=== PATIENT | female | born 1975 | race Caucasian/White ===

== ENCOUNTER 2017-03-03 15:22 | Inpatient (IN) | payer MEDICARE ==
--- NOTE | ~2017-03-03 | A ---
[facility] Nutrition Therapy DATE: 03/08/17 Patient: NAEEM WINKLER Physician: BEE Address: [address] [place] [address] Room/Bed: [address] [place] [address], Zip: [place] [address] Admit Date: 03/03/17 Date of : 75 Height: 5 5 Weight: 191 86.8 NUTRITIONAL ASSESSMENT: REASON: CONSULT RE: DM DIET EDUCATION DX: SEPSIS, UTI, CELLULITIS PMH: DM Anthropometrics: 5'5", 185#, BMI 30 Assessment: CHART REVIEWED, EVENTS NOTED. RD CONSULTED RE: DIABETES DIET EDUCATION. PER RN, THE PT HAS BEEN NON-COMPLIANT WITH HER DIABETIC DIET IN THE PAST. RD AND CONVEYOR WEIGHER OPERATOR VISITED PT AT BEDSIDE AND PROVIDED WRITTEN AND VERBAL DIABETIC DIET EDUCATION. RD ENCOURAGED PT TO EAT 3 MEALS A DAY AND TO INCLUDE A PROTEIN SOURCE WITH EACH MEAL. RD PROVIDED EXAMPLES OF HEALTHY FOODS TO INCLUDE IN HER DIET, AND GAVE AN EXPLANATION OF CARB-COUNTING. PT WAS AGREEABLE AND HAD NO QUESTIONS AT THIS TIME. RD WILL REMAIN AVAILABLE. Intervention: 1. DIABETES DIET EDUCATION Recommendations: 1. ENCOURAGE COMPLIANCE OF DIABETIC DIET. 2. RE-CONSULT RD IF FURTHER QUESTIONS. Respectfully, RATNA VALENZUELA, BANKING MANAGER LIAN DRIVER MS, RD, LD Food and Nutritional Services [facility] cc: client file
--- NOTE | ~2017-03-03 | HP ---
Unit #: [id number] #: [id number] Patient: NAEEM WINKLER [id number] [address] [place], [place] [address] [id number] I MR#: [id number] NAME: NAEEM WINKLER ROOM: 338 Age: 41 Sex: F Admission Date: 03/03/2017 : 1975 Attending Physician: Joe Be M.D. Primary Care Physician: No Primary Care Physician HISTORY AND PHYSICAL CHIEF COMPLAINT Elevated blood sugars. HISTORY OF PRESENT ILLNESS The patient is a 41-year-old female with a history of diabetes on metformin, brought to the emergency room with the sugars above 400 in the range of 470s for the last one week. The patient also complains of swelling of the right hand that started a few days ago. The patient denies any trauma to the hand and complains of the swelling and redness at the right wrist. The patient also complains of the on and off nausea, vomiting, and diarrhea associated with high blood sugars. The patient is diagnosed with uncontrolled diabetes, cellulitis and UTI. The patient's UA shows 1+ leukocyte esterase, 2+ blood and 25-50 red blood cell, and 1+ bacteria. PAST MEDICAL HISTORY Significant for hypertension, hypothyroidism, diabetes. PAST SURGICAL HISTORY History of a right foot surgery, EGD, tonsillectomy. MEDICATIONS She is on metformin, gabapentin, atenolol, and Synthroid. ALLERGIES Allergic to erythromycin based. SOCIAL HISTORY Smokes 1/2 pack per day. Denies any alcohol or any illicit drug abuse. FAMILY HISTORY Reviewed and none. REVIEW OF SYSTEMS Fourteen point review of systems was performed and only pertinent positives as described above. The remaining are negative. PHYSICAL EXAMINATION GENERAL: The patient is lying on the bed, not in acute distress. VITALS: Temperature 98.3, pulse 72, respiratory rate 16, blood pressure 118/72, satting 96% at room air. HEENT: Head atraumatic, normocephalic. Pupils equal, round and reactive to light and accommodation. Extraocular movements are intact. NECK: Supple. Unit #: [id number] #: [id number] Patient: NAEEM WINKLER LUNGS: Decreased air entry at the bases. HEART: Regular rate and rhythm. ABDOMEN: Soft. Positive bowel sounds. Generalized abdominal discomfort. EXTREMITIES: Right wrists swollen and tenderness and palpable pulses. No open wounds. No cyanosis and no clubbing. NEUROLOGIC: Alert, awake and oriented. No gross focal motor deficit. DIAGNOSTIC STUDIES LABORATORY DATA: UA shows bacteria 1+ with a glucose of 25-50, glucose more than 1,000, leukocytes 1+. Blood sugar 478 and ABG shows pH of 7.5, pCO2 38, pO2 73.6, bicarb 31.8, oxygen saturation 97 and drug screen is negative. Beta HCG is negative. WBC 22.5, hemoglobin 15, hematocrit 45.1, platelets 387. Sodium 137, potassium 3.9, chloride 95, bicarb 30, glucose 398, BUN 44, creatinine 1.3, calcium 9.5, alk phos 96, beta hydroxybutyrate is 0.15. Lactic acid is 1.4. IMAGING STUDIES: Chest x-ray shows no active process. CT of the abdomen and pelvis - no acute findings in the abdominal pelvis and 9 mm indeterminate patchy nodular density in the posterior right lung base in the inferior lower lobe. This could be infectious or inflammatory but is nonspecific and followup CT chest in 3 months should be considered. Single tiny nonobstructing stone in the mid right and left kidneys. Normal appendix. Partially visualized incidental Bartholin duct cyst along the left inferior perineum measuring 4.2 cm in maximal dimension. ASSESSMENT AND PLAN 1. Uncontrolled diabetes mellitus. 2. Cellulitis. 3. UTI. 4. Sepsis. PLAN Plan to admit the patient to inpatient and patient will be started on the IV fluids, normal saline at 125 cc per hour, continuing with IV antibiotics with Unasyn to cover the UTI and the cellulitis and followup with the sepsis protocol and continue with the low dose sliding scale and Accu-Cheks q. a.c. and h.s. and check the hemoglobin A1c and further recommendations will follow. Dictated by Maria Luisa De La Cruz TD: 03/04/2017 06:22 JOB #: [id number] Unit #: [id number] #: [id number] Patient: NAEEM WINKLER HISTORY AND PHYSICAL Page 1 of 1 X JOE BE MD X HISTORY AND PHYSICAL
--- NOTE | ~2017-03-03 | CT57 ---
[facility] A Service of [facility] RADIOLOGY TEXT RESULTS PATIENT: NAEEM WINKLER LOCATION: [facility] : 75 UNIT #: [id number] AGE: [address]: Sil Guillaume MD SEX: F ORDER DR: [id number] [id number] [facility]. [place], [place] [address] [id number] I MR#: [id number] Acc #: [id number] NAME: NAEEM IWNKLER : 1975 SEX: F STUDY DATE/TIME: 03/04/2017 13:17 UNIT: [address] ROOM: [facility] STUDY DESCRIPTION: CT Chest Wo Cont Attending Physician: Sil Guillaume M.D. Ordering Physician: Sil Guillaume M.D. Primary Care Physician: No Primary Care Physician MEDICAL IMAGING REPORT This report is preliminary unless electronic signature is present EXAM Chest CT no contrast 03/04/2017 INDICATIONS Coughing for a while. No history of malignancy. Hypertension, diabetes, tobacco abuse. TECHNIQUE Noncontrast CT of the chest was performed. This CT exam was performed with one or more of the following radiation dose reduction techniques: automatic exposure control, adjustment of mA and/or kV according to patient size, and iterative reconstruction. COMPARISON STUDIES No comparisons. FINDINGS CT CHEST: There is a 9 mm ground-glass nodular density in the right lower lobe. This is indeterminate. No other suspicious pulmonary nodule identified. There is some probable atelectasis associated with the right middle lobe and lingula. No evidence of pleural effusion. Included thyroid unremarkable. Probable reactive mediastinal nodes. No axillary adenopathy. No pericardial effusion. Aorta unremarkable. Included upper abdomen demonstrates no acute finding. Incidental tiny sand-like nonobstructing stones in both kidneys. Osseous structures demonstrate no suspicious bone lesion. There are probable Schmorl node deformities in the lower thoracic spine. IMPRESSION 1. Ground-glass nodular density in the right lower lobe measures 9 mm [facility] A Service [facility] RADIOLOGY TEXT RESULTS PATIENT: NAEEM WINKLER LOCATION: [facility] : 75 UNIT #: [id number] AGE: [address]: Sil Guillaume MD SEX: F ORDER DR: and is indeterminate. This may be inflammatory or infectious but warrants followup CT in 3 months for reassessment of stability or resolution over time. 2. Probable atelectatic change in both lungs. No evidence of pneumonia or effusion. 3. Reactive-appearing mediastinal nodes. 4. Nonobstructing renal stones. Dictated by... Jaya Gilbert M.D. THIS IS AN ELECTRONICALLY VERIFIED REPORT Jaya Gilbert M.D. at 03/04/2017 5:34 PM Scarlett TD: 03/04/2017 16:32 JOB #: [id number] MEDICAL IMAGING REPORT Page 1 of 1 COPY
--- NOTE | ~2017-03-03 | CT4 ---
[facility] A Service of [facility] & [facility] RADIOLOGY TEXT RESULTS PATIENT: NAEEM WINKLER LOCATION: C3A 338- : 75 UNIT #: [id number] AGE: [address]: JOE BE MD SEX: F ORDER DR: [id number] [facility]. [place], [place] [address] [id number] I MR#: [id number] Acc #: [id number] NAME: NAEEM WINKLER : 1975 SEX: F STUDY DATE/TIME: 03/03/2017 18:29 UNIT: C3[facility] PCU ROOM: 338 STUDY DESCRIPTION: CT Abd and Pelv Wo Cont Attending Physician: Joe Be M.D. Ordering Physician: Sukhdev Orozco M.D. Primary Care Physician: Primary Care Physician No MEDICAL IMAGING REPORT This report is preliminary unless electronic signature is present EXAM CT abdomen and pelvis without contrast HISTORY Abdomen pain for 3 days, mid abdomen. Hyperglycemia. This CT exam was performed with one or more of the following radiation dose reduction techniques: automatic exposure control, adjustment of mA and/or kV according to patient size, and iterative reconstruction. FINDINGS CT abdomen and pelvis was performed without contrast. CT ABDOMEN: There is a 9 mm patchy nodular density in the posterior right lung base in the lower lobe. This could be infectious or inflammatory, but is nonspecific and followup chest CT in 3 months should be considered. Tiny nonobstructing stone in both the right and left mid kidneys, measuring 1-2 mm. No hydronephrosis. No perinephric stranding. The spleen, pancreas, and adrenal glands, liver and gallbladder are unremarkable. No bowel dilatation. No ascites or inflammatory stranding. Normal caliber abdominal aorta. CT PELVIS: The uterus and adnexa are unremarkable. Normal appendix. Urinary bladder is normal. Partly visualized Bartholin duct cyst along the left inferior perineum measuring 2.9 cm x 4.2 cm. No bowel dilatation. IMPRESSION 1. No acute findings in the abdomen or pelvis. 2. A 9 mm indeterminate patchy nodular density in the posterior right lung base in the inferior lower lobe. This could be infectious or inflammatory but is nonspecific and followup CT chest in 3 months should be considered. [facility] A Service of [facility] & [facility] RADIOLOGY TEXT RESULTS PATIENT: NAEEM WINKLER LOCATION: [facility] 338-01 : 75 UNIT #: [id number] AGE: [address]: JOE BE MD SEX: F ORDER DR: 3. Single tiny nonobstructing stone in the mid right and left kidneys. 4. Normal appendix. 5. Partly visualized incidental Bartholin duct cyst along the left inferior perineum measuring 4.2 cm in maximal dimension. Dictated by... Tang Cohen M.D. THIS IS AN ELECTRONICALLY VERIFIED REPORT Tang Cohen M.D. at 03/03/2017 10:40 PM CATHERINE/matthew TD: 03/03/2017 22:27 JOB #: [id number] MEDICAL IMAGING REPORT Page 1 of 1 COPY
--- NOTE | ~2017-03-03 | CR72 ---
[facility] A Service of [facility] & [facility] RADIOLOGY TEXT RESULTS PATIENT: NAEEM WINKLER LOCATION: [facility] 338-01 : 75 UNIT #: [id number] AGE: [address]: Sil Guillaume MD SEX: F ORDER DR: [id number] [facility] [address]. [place], [place] [address] [id number] I MR#: [id number] Acc #: [id number] NAME: NAEEM WINKLER : 1975 SEX: F STUDY DATE/TIME: 03/03/2017 17:45 UNIT: [address] ROOM: [facility] STUDY DESCRIPTION: CR Chest Single View Portable Attending Physician: Ashley Be M.D. Ordering Physician: Sukhdev Orozco M.D. Primary Care Physician: Primary Care Physician No MEDICAL IMAGING REPORT This report is preliminary unless electronic signature is present EXAM Portable chest INDICATION Hyperglycemia and shortness of air for the past week. PROCEDURE Frontal view chest. COMPARISON None. FINDINGS Heart size within normal limits. The lungs are clear. No pleural fluid and no pneumothorax. IMPRESSION No active process. Dictated by... Juan Rod M.D. THIS IS AN ELECTRONICALLY VERIFIED REPORT Juan Rod M.D. at 03/04/2017 2:25 PM JEB/matthew TD: 03/03/2017 22:13 JOB #: [id number] MEDICAL IMAGING REPORT Page 1 of 1 COPY
--- NOTE | ~2017-03-03 | CR142 ---
[facility] A Service of [facility] RADIOLOGY TEXT RESULTS PATIENT: NAEEM WINKLER LOCATION: [facility] 338-01 : 75 UNIT #: [id number] AGE: [address]: Sil Guillaume MD SEX: F ORDER DR: [id number] [facility] [address] [facility]. [place], [place] [address] [id number] I MR#: [id number] Acc #: [id number] NAME: NAEEM WINKLER : 1975 SEX: F STUDY DATE/TIME: 03/04/2017 1332 UNIT: A [facility] ROOM: [facility] STUDY DESCRIPTION: CR Hand Min 3 Views Rt Attending Physician: Sil Guillaume M.D. Ordering Physician: Sil Guillaume M.D. Primary Care Physician: No Primary Care Physician MEDICAL IMAGING REPORT This report is preliminary unless electronic signature is present EXAM Right hand 3 views 03/04/2017 1332 hours HISTORY 41-year-old woman with 4-day history of painful swollen right hand on top of hand. No known injury. COMPARISON None. FINDINGS AP and lateral and oblique views demonstrate diffuse dorsal soft tissue swelling. The overall bone density is normal. There is no fracture, dislocation or periosteal reaction. No foreign body seen. IMPRESSION Dorsal soft tissue swelling over the metacarpals with no fracture, dislocation, foreign body or soft tissue gas. Dictated by... Kia Macias M.D. THIS IS AN ELECTRONICALLY VERIFIED REPORT Kia Macias M.D. at 03/04/2017 5:42 PM Kimmy TD: 03/04/2017 16:53 JOB #: [id number] MEDICAL IMAGING REPORT Page 1 of 1 COPY
--- NOTE | ~2017-03-03 | OR ---
Unit #: [id number] #: [id number] Patient: NAEEM WINKLER [id number] [facility]. [address] [place], [place] [address] [id number] I MR#: [id number] NAME: NAEEM WINKLER ROOM: 338 Date of Procedure: 03/06/2017 Admission Date: 03/03/2017 Surgeon: Shashi Franks Jr., M.D. : 1975 Attending Physician: Sil Guillaume M.D. Primary Care Physician: Primary Care Physician No OPERATIVE REPORT INDICATION FOR PROCEDURE The patient is a 41-year-old white female, who was admitted with several medical problems including sepsis and UTI, evidence of an abscess in the dorsum of the right hand. She denies any injections of any medications or drugs in this area. She is brought to the operating room at this time for incision and drainage, and sharp excisional debridement using a #10 blade scalpel of this abscess. PREOPERATIVE DIAGNOSIS Abscess in the dorsum of the right hand. POSTOPERATIVE DIAGNOSIS Abscess in the dorsum of the right hand, noting approximately 3 to 4 mL of pus evacuated from the small abscess that extended down to the extensor tendon centrally. ANESTHESIA General with LMA. PROCEDURES PERFORMED Incision, drainage, and sharp excisional debridement with a #10 blade scalpel of abscess of the right dorsal hand. DESCRIPTION OF PROCEDURE The patient was positioned in the supine position. After being anesthetized, she was prepped and draped in a routine fashion for incision and drainage of the abscess of her hand. A small vertical incision was made approximately an inch in length, this was carried down through the dermis down to the subcutaneous tissue, where there was a pocket of pus approximately 3 to 4 mL. Culture, aerobic and anaerobic organisms were sent. A portion of the skin on each side of the incision was then excised, and the abscess well drained using a #10 blade scalpel. Also, using a #10 blade scalpel and Metzenbaum scissors, some necrotic tissue at the base of the abscess was debrided. Hemostasis was achieved with Bovie cautery, and the wound was packed with saline moist dry dressings. A sterile compression dressing was applied externally. Estimated blood loss was minimal, less than 25 mL. The patient received less than 500 mL of crystalloid solution during the procedure. Sponges and instruments counts were correct x3. No drains were used. No complications. The patient was taken to the recovery room with stable vital signs in a satisfactory condition. Unit #: [id number] #: [id number] Patient: NAEEM WINKLER Dictated by... Shashi Franks Jr., M.D. JMB/becca TD: 03/06/2017 12:13 JOB #: [id number] OPERATIVE REPORT Page 1 of 1 X Shashi Franks MD X PROCEDURE OPERATIVE NOTE
--- NOTE | ~2017-03-03 | DS ---
Unit #: [id number] #: [id number] Patient: NAEEM WINKLER [id number] [facility]. [address] [place], [place] [address] [id number] I MR#: [id number] NAME: NAEEM WINKLER ROOM: 239 Age: 41 Sex: F Admission Date: 03/03/2017 : 1975 Discharge Date: 03/08/2017 Attending Physician: Sil Guillaume M.D. Primary Care Physician: No Primary Care Physician DISCHARGE SUMMARY REASON FOR ADMISSION Elevated blood sugars. HISTORY OF PRESENT ILLNESS/HOSPITAL COURSE Patient is a very pleasant 41-year-old female with a prior history of diabetes, currently on metformin, who stated that she began having elevated blood sugars above 400 for the past several days. She also, on day of admission, complained of right hand swelling, as well as right wrist pain. She was also noted to have an abnormal urinalysis and, thus, presented to the hospital for further evaluation. While she was here, she stated that she began having abdominal pain and/or discomfort. She underwent a CT abdomen and pelvis, which did show a 9-mm patchy nodular density in the posterior right lung base, consideration for possible infectious versus inflammatory. Followup CT chest in 3 months was recommended. She also underwent routine laboratory studies including blood cultures, which were negative. Her hemoglobin A1C was noted to be 11.5%. She also underwent a CT chest noncontrast on 03/04/2017. It did show the aforementioned 9-mm nodular density, which was noted again. In regard to her right hand pain and/or discomfort, she underwent a routine x-ray, which did not show any foreign body. No fractures were noted. She was placed on IV antibiotics, and initial diagnosis of right hand cellulitis/possible abscess formation was made. Consultation was subsequently placed to [facility] on 03/06/2017. The patient, under the service of Dr. Franks, underwent I and D with approximately 3 to 4 mL of pus evacuated from a small abscess. Postoperatively she otherwise did well. Wound cultures did not show any acute bacterial growth. While she was here she was placed on IV Unasyn, and this was transitioned to p.o. Augmentin at time of discharge. In regard to her elevated blood sugar, she was placed on Levemir, as well as high dose sliding scale insulin. At time of discharge her metformin will be continued, and she will be placed on Levemir 20 units subcu b.i.d., as well as NovoLog 5 units t.i.d. with meals. Her insulin requirement was fairly significant through her hospital course here, as was her elevated A1C, indicating her diabetes is under fairly poor control. She was instructed to follow up with her PCP in approximately 10 days for reevaluation in regard to diabetes. She is also to follow up with Dr. Unit #: [id number] #: [id number] Patient: NAEEM WINKLER of [facility] in 7-10 days for evaluation of her right hand. While she was here, she did have increased anxiety. She tells me in the past she has been diagnosed with both anxiety and bipolar. I placed her on Lexapro 10 mg on a daily basis and asked her to follow up with her primary care physician in regard to same. FINAL DISCHARGE DIAGNOSES 1. Hyperglycemia on admission. 2. Abdominal pain on admission, now resolved. 3. Poorly controlled diabetes, now insulin dependent. 4. Right hand abscess/cellulitis status post incision and drainage. 5. Abnormal urinalysis on admission with negative urine culture. 6. Obesity. 7. Anxiety. 8. Possible prior history of bipolar disorder. 9. Hypertension. FINAL DISCHARGE MEDICATIONS 1. Lexapro 10 mg p.o. daily. 2. Glucophage 1,000 mg p.o. b.i.d. 3. Tenormin 50 mg p.o. b.i.d. 4. Lisinopril 20 mg p.o. daily. 5. Levemir 20 units subcu b.i.d. 6. NovoLog 5 units t.i.d. with meals. 7. Synthroid 25 mcg p.o. daily. 8. Lortab 7.5/325 mg 1 tablet p.o. q.4 p.r.n. (#[address] Franks). 9. Augmentin 875 mg p.o. b.i.d. x7 days. DISCHARGE CONDITION Stable. DISCHARGE DISPOSITION Home. FOLLOW UP 1. Home health to follow at time of discharge. 2. Follow up with Dr. Franks in 1-2 weeks. Dictated by... Maria Luisa Espinal/maya TD: 03/09/2017 08:15 JOB #: [id number] Unit #: [id number] #: [id number] Patient: NAEEM WINKLER DISCHARGE SUMMARY Page 1 of 1 X Sil Guillaume MD X DISCHARGE SUMMARY
[2017-03-03 16:59] LABS: URINE SOURCE CLEAN CATCH
[2017-03-03 17:06] LABS: URINE APPEARANCE CLEAR; URINE BILIRUBIN NEG (NEG); URINE BLOOD 2+ (NEG); URINE COLOR YELLOW; URINE GLUCOSE >1000 MG/DL (NEG); URINE KETONE NEG (NEG); URINE LEUKOCYTE ESTERASE 1+ (NEG); URINE NITRATE NEG (NEG); URINE PROTEIN NEG (NEG); URINE SPECIFIC GRAVITY 1.033 (1.003-1.035); URINE UROBILINOGEN 0.2 MG/DL (NEG)
[2017-03-03 17:07] LABS: BASOPHIL# 0.1 X10e3 (0-0.3); BASOPHIL% 0.5 % (0-2.5); EOSINOPHIL# 0.4 X10e3 (0-0.7); EOSINOPHIL% 1.8 % (0.0-7.0); HEMATOCRIT 45.1 % (35.0-45.0); LYMPHOCYTE# 4.8 X10e3 (1.0-3.5); LYMPHOCYTE% 21.5 % (17.0-45.0); MEAN CELL VOLUME 87.3 FL (83-96); MEAN CORPUSCULAR HEMOGLOBIN 29.1 PG (28-34); MEAN CORPUSCULAR HGB CONC 33.3 g/dL (30-36); MEAN PLATELET VOLUME 8.9 FL (6.5-11.5); MONOCYTE# 2.1 X10e3 (0-1.0); MONOCYTE% 9.2 % (3.0-12.0); PLATELET COUNT 387 X10e3 (140-420); RED BLOOD COUNT 5.17 X10e (3.90-5.30); RED CELL DISTRIBUTION WIDTH 13.1 % (11.0-15.5); WHITE BLOOD COUNT 22.5 X10e3 (4.0-10.5)
[2017-03-03 17:08] LABS: DIFF IND YES
[2017-03-03 17:09] LABS: CULTURE INDICATED? YES; URINE SQUAMOUS EPITHELIAL CELL NONE SEEN /[HPF]; UWBCS1 AUWI 25-50 (0-5)
[2017-03-03 17:10] LABS: ARTERIAL BLOOD GAS HCO3 31.8 mmol/L; ARTERIAL BLOOD GAS PCO2 38.2 mmHg (35.0-45.0); ARTERIAL BLOOD GAS PO2 73.6 mmHg (80.0-100); ARTERIAL BLOOD GAS pH 7.528 (7.350-7.450)
[2017-03-03 17:11] LABS: ARTERIAL BLOOD GAS CARBOXY HB 9.5 %sat (0.0-9.0); ARTERIAL BLOOD GAS MET HB 0.9 %sat (0.0-2.0)
[2017-03-03 17:12] LABS: ARTERIAL BLOOD GAS ALLEN TEST NORMAL; ARTERIAL BLOOD GAS ART SITE RIGHT RADIAL; ARTERIAL DRAW? YES
[2017-03-03 17:16] LABS: AMPHETAMINE NEG (NEG); BARBITURATES NEG (NEG); BENZODIAZEPINES NEG (NEG); COCAINE NEG (NEG); MARIJUANA NEG (NEG); OPIATES NEG (NEG); TRICYCLIC ANTIDEPRESSANTS NEG (NEG); U METHADONE NEG (NEG)
[2017-03-03 17:19] LABS: URINE BACTERIA AUWI 1+ (NEGATIVE)
[2017-03-03 17:28] LABS: ANISOCYTOSIS SL; PLATELET ESTIMATE NORMAL (NORMAL); POIKILOCYTOSIS SL; RBC NORMAL YES
[2017-03-03 17:33] LABS: ALBUMIN SERUM 3.6 g/dL (3.5-5.0); ALKALINE PHOSPHATASE 96 U/L (32-92); ALT (SGPT) 15 U/L (10-40); AST (SGOT) 14 U/L (10-42); BETA HYDROXYBUTYRATE 0.15 MMOL/L (0.02-0.27); BILIRUBIN,TOTAL 0.8 mg/dL (0.2-2.0); BLOOD UREA NITROGEN 44 mg/dL (9-23); BUN/CREATININE RATIO 33.84; CALCIUM SERUM 9.5 mg/dL (8.4-10.2); CARBON DIOXIDE 30 mmol/L (22-31); CHLORIDE 95 mmol/L (100-111); CREATININE SERUM 1.3 mg/dL (0.6-1.4); GLOM FILT RATE Estimated 50.9 mL/min (>60); GLUCOSE FASTING 398 mg/dL (70-110); POTASSIUM 3.9 mmol/L (3.5-5.1); PROTEIN TOTAL SERUM 8.3 g/dL (6.0-8.3); SODIUM 137 mmol/L (135-145)
[2017-03-03 17:34] LABS: BILIRUBIN, DIRECT <0.1 mg/dL (0.0-0.2); BILIRUBIN,INDIRECT 0.7 mg/dL (0.0-0.9)
[2017-03-03] MEDS ORDERED: METFORMIN PO (19:28)
[2017-03-03] MEDS ORDERED: NEURONTIN600 MG PO (19:29)
[2017-03-03] MEDS ORDERED: SYNTHROID25 MCG PO (19:29)
[2017-03-03] MEDS ORDERED: ATENOLOL PO (19:29)
[2017-03-04 00:59] LABS: HEMATOCRIT 41.9 % (35.0-45.0); HEMOGLOBIN 13.6 gm/dL (12.0-16.0); MEAN CELL VOLUME 88.1 FL (83-96); MEAN CORPUSCULAR HEMOGLOBIN 28.5 PG (28-34); MEAN CORPUSCULAR HGB CONC 32.4 g/dL (30-36); MEAN PLATELET VOLUME 8.9 FL (6.5-11.5); RED BLOOD COUNT 4.75 X10e (3.90-5.30); RED CELL DISTRIBUTION WIDTH 13.2 % (11.0-15.5); WHITE BLOOD COUNT 18.7 X10e3 (4.0-10.5)
[2017-03-04 07:54] LABS: HEMATOCRIT 39.8 % (35.0-45.0); MEAN CELL VOLUME 87.5 FL (83-96); MEAN CORPUSCULAR HEMOGLOBIN 28.6 PG (28-34); MEAN CORPUSCULAR HGB CONC 32.7 g/dL (30-36); MEAN PLATELET VOLUME 8.5 FL (6.5-11.5); RED BLOOD COUNT 4.54 X10e (3.90-5.30); RED CELL DISTRIBUTION WIDTH 12.8 % (11.0-15.5); WHITE BLOOD COUNT 18.1 X10e3 (4.0-10.5)
[2017-03-04 08:11] LABS: BUN/CREATININE RATIO 26.66; CALCIUM SERUM 7.8 mg/dL (8.4-10.2); CREATININE SERUM 0.9 mg/dL (0.6-1.4); GLOM FILT RATE Estimated 79.5 mL/min (>60); POTASSIUM 3.4 mmol/L (3.5-5.1)
[2017-03-04 12:27] LABS: THYROID STIMULATING HORMONE 2.66 uIU/ml (0.34-5.60)
[2017-03-05 06:29] LABS: HEMATOCRIT 38.6 % (35.0-45.0); HEMOGLOBIN 12.4 gm/dL (12.0-16.0); MEAN CELL VOLUME 89.7 FL (83-96); MEAN CORPUSCULAR HEMOGLOBIN 28.9 PG (28-34); MEAN CORPUSCULAR HGB CONC 32.2 g/dL (30-36); MEAN PLATELET VOLUME 8.5 FL (6.5-11.5); RED BLOOD COUNT 4.3 X10e (3.90-5.30); RED CELL DISTRIBUTION WIDTH 13.3 % (11.0-15.5); WHITE BLOOD COUNT 16.9 X10e3 (4.0-10.5)
[2017-03-05 07:03] LABS: BUN/CREATININE RATIO 15.71; CALCIUM SERUM 7.2 mg/dL (8.4-10.2); CREATININE SERUM 0.7 mg/dL (0.6-1.4); GLOM FILT RATE Estimated 107.6 mL/min (>60); POTASSIUM 4.5 mmol/L (3.5-5.1)
[2017-03-06 06:56] LABS: HEMATOCRIT 38.1 % (35.0-45.0); HEMOGLOBIN 12.3 gm/dL (12.0-16.0); MEAN CELL VOLUME 87.7 FL (83-96); MEAN CORPUSCULAR HEMOGLOBIN 28.4 PG (28-34); MEAN CORPUSCULAR HGB CONC 32.4 g/dL (30-36); MEAN PLATELET VOLUME 8.5 FL (6.5-11.5); RED BLOOD COUNT 4.34 X10e (3.90-5.30); RED CELL DISTRIBUTION WIDTH 13.1 % (11.0-15.5); WHITE BLOOD COUNT 14.9 X10e3 (4.0-10.5)
[2017-03-06 07:32] LABS: BUN/CREATININE RATIO 12.85; CALCIUM SERUM 7.4 mg/dL (8.4-10.2); CREATININE SERUM 0.7 mg/dL (0.6-1.4); GLOM FILT RATE Estimated 107.6 mL/min (>60); POTASSIUM 3.7 mmol/L (3.5-5.1)
[2017-03-07 05:31] LABS: HEMOGLOBIN 11.8 gm/dL (12.0-16.0); MEAN CELL VOLUME 87.6 FL (83-96); MEAN CORPUSCULAR HEMOGLOBIN 27.9 PG (28-34); MEAN CORPUSCULAR HGB CONC 31.8 g/dL (30-36); MEAN PLATELET VOLUME 8.9 FL (6.5-11.5); RED BLOOD COUNT 4.22 X10e (3.90-5.30); RED CELL DISTRIBUTION WIDTH 13.1 % (11.0-15.5); WHITE BLOOD COUNT 14.6 X10e3 (4.0-10.5)
[2017-03-07 06:21] LABS: BUN/CREATININE RATIO 15.71; CALCIUM SERUM 7.1 mg/dL (8.4-10.2); CREATININE SERUM 0.7 mg/dL (0.6-1.4); GLOM FILT RATE Estimated 107.6 mL/min (>60); POTASSIUM 3.8 mmol/L (3.5-5.1)
[2017-03-08 06:43] LABS: HEMATOCRIT 36.9 % (35.0-45.0); MEAN CELL VOLUME 86.5 FL (83-96); MEAN CORPUSCULAR HEMOGLOBIN 28.2 PG (28-34); MEAN CORPUSCULAR HGB CONC 32.6 g/dL (30-36); MEAN PLATELET VOLUME 8.7 FL (6.5-11.5); RED BLOOD COUNT 4.27 X10e (3.90-5.30); RED CELL DISTRIBUTION WIDTH 13.4 % (11.0-15.5); WHITE BLOOD COUNT 13.8 X10e3 (4.0-10.5)
[2017-03-08 07:14] LABS: BUN/CREATININE RATIO 15.71; CALCIUM SERUM 7.6 mg/dL (8.4-10.2); CREATININE SERUM 0.7 mg/dL (0.6-1.4); GLOM FILT RATE Estimated 107.6 mL/min (>60); MAGNESIUM 1.6 mg/dL (1.6-3.0)
[2017-03-08] MEDS ORDERED: LEVEMIR FL100 UNIT/1 SUBQ (11:49)
[2017-03-08] MEDS ORDERED: LEXAPRO PO (11:49)
[2017-03-08] MEDS ORDERED: NOVOLOG FL100 UNIT/1 SUBQ (11:50)
[2017-03-08] MEDS ORDERED: PRINIVIL20 M1 PO (11:51)
[2017-03-08] MEDS ORDERED: AUGMENTIN PO (11:52)
[2017-03-08] MEDS ORDERED: LORTAB 7.5-3251 EACH PO (11:52)
== END 2017-03-08 16:37 | disposition home health service (06) | DRG 854 ==
LOC: CED 15:22 → C3A PCU 20:30 → CEDOF 20:30 → CED 20:36 → C3A PCU 21:04 → CEDOF 21:04 → C3A PCU 21:04 → C2A 03-06 16:48
PROVIDERS: Emergency Medicine; Family Medicine; Internal Medicine; Physician Assistant Medical; Surgery
PROC: 0J9J0ZZ Drainage of Right Hand Subcutaneous Tissue and Fascia, Open Approach (ICD-10-PCS; principal; 2017-03-06 07:30)
DX: A41.9 Sepsis, unspecified organism (principal); L03.113 Cellulitis of right upper limb; E11.65 Type 2 diabetes mellitus with hyperglycemia; I10 Essential (primary) hypertension; L02.511 Cutaneous abscess of right hand; R82.90 Unspecified abnormal findings in urine; E03.9 Hypothyroidism, unspecified; F17.210 Nicotine dependence, cigarettes, uncomplicated; E66.9 Obesity, unspecified; Z68.31 Body mass index [BMI] 31.0-31.9, adult; F41.9 Anxiety disorder, unspecified; F31.9 Bipolar disorder, unspecified; Z88.1 Allergy status to other antibiotic agents
CPT/HCPCS: 36415; 36600; 71010; 71250; 73130; 74176; 80048; 80076; 80307; 81003; 82010; 82803; 82947; 83036; 83605; 83735; 84439; 84443; 84703; 85025; 85027; 87040; 87070; 87075; 87076; 87086; 87205; 87493; 96360; 99285; J0295; J0696; J1170; J1815; J1885; J2250; J2270; J2405; J3010; J3475

== ENCOUNTER 2017-04-15 14:36 | Emergency (ER) | payer SELFPAY ==
[~2017-04-15] VITALS: Ht 165.1 cm; Wt 86.2 kg
[~2017-04-15 14:36] MED LIST: ATENOLOL PO; AUGMENTIN PO; LEVEMIR FL100 UNIT/1 SUBQ; LEXAPRO PO; LORTAB 7.5-3251 EACH PO; METFORMIN PO; NEURONTIN600 MG PO; NOVOLOG FL100 UNIT/1 SUBQ; PRINIVIL20 M1 PO; SYNTHROID25 MCG PO
[2017-04-15 15:17] LABS: URINE SOURCE CLEAN CATCH
[2017-04-15 15:31] LABS: URINE APPEARANCE CLEAR; URINE BILIRUBIN NEG (NEG); URINE BLOOD NEG (NEG); URINE COLOR YELLOW; URINE GLUCOSE 100 MG/DL (NEG); URINE KETONE NEG (NEG); URINE LEUKOCYTE ESTERASE TRACE (NEG); URINE NITRATE NEG (NEG); URINE PH 5.5 (5-8); URINE PROTEIN NEG (NEG); URINE UROBILINOGEN 0.2 MG/DL (NEG)
[2017-04-15 15:32] LABS: CULTURE INDICATED? YES; URBCS1 AUWI 0-2 /[HPF] (0-2); URINE BACTERIA AUWI 1+ (NEGATIVE); URINE SQUAMOUS EPITHELIAL CELL FEW /[HPF]
[2017-04-15 16:06] LABS: BASOPHIL# 0.1 X10e3 (0-0.3); BASOPHIL% 0.4 % (0-2.5); EOSINOPHIL# 0.3 X10e3 (0-0.7); EOSINOPHIL% 2.5 % (0.0-7.0); HEMATOCRIT 43.8 % (35.0-45.0); HEMOGLOBIN 14.4 gm/dL (12.0-16.0); LYMPHOCYTE# 3.4 X10e3 (1.0-3.5); LYMPHOCYTE% 28.4 % (17.0-45.0); MEAN CELL VOLUME 88.7 FL (83-96); MEAN CORPUSCULAR HEMOGLOBIN 29.1 PG (28-34); MEAN CORPUSCULAR HGB CONC 32.9 g/dL (30-36); MEAN PLATELET VOLUME 8.2 FL (6.5-11.5); MONOCYTE# 0.8 X10e3 (0-1.0); MONOCYTE% 6.9 % (3.0-12.0); NEUTROPHIL# 7.5 X10e3 (1.5-7.1); NEUTROPHIL% 61.8 % (40-75); PLATELET COUNT 339 X10e3 (140-420); RED BLOOD COUNT 4.94 X10e (3.90-5.30); RED CELL DISTRIBUTION WIDTH 15.4 % (11.0-15.5); WHITE BLOOD COUNT 12.1 X10e3 (4.0-10.5)
[2017-04-15 16:09] LABS: DIFF IND NO
[2017-04-15 16:42] LABS: ALBUMIN SERUM 3.9 g/dL (3.5-5.0); BILIRUBIN, DIRECT 0.1 mg/dL (0.0-0.2); BILIRUBIN,INDIRECT 0.6 mg/dL (0.0-0.9); BILIRUBIN,TOTAL 0.7 mg/dL (0.2-2.0); BUN/CREATININE RATIO 13.75; CALCIUM SERUM 9.3 mg/dL (8.4-10.2); CREATININE SERUM 0.8 mg/dL (0.6-1.4); POTASSIUM 3.9 mmol/L (3.5-5.1); PROTEIN TOTAL SERUM 7.5 g/dL (6.0-8.3)
== END 2017-04-15 20:14 | disposition home or self-care (01) ==
LOC: CED 14:36
DX: R10.13 Epigastric pain (principal); R11.2 Nausea with vomiting, unspecified; E11.9 Type 2 diabetes mellitus without complications; I10 Essential (primary) hypertension; F17.200 Nicotine dependence, unspecified, uncomplicated; Z88.1 Allergy status to other antibiotic agents; Z79.4 Long term (current) use of insulin; Z79.899 Other long term (current) drug therapy
CPT/HCPCS: 36415; 80048; 80076; 81003; 83690; 84703; 85025; 87086; 96361; 96374; 96375; 99284; J2270; J2405

== ENCOUNTER 2017-05-09 02:39 | Emergency (ER) | payer SELFPAY | END 2017-05-09 04:15 | disposition home or self-care (01) | LOC: CED 02:39 | DX: M54.42 Lumbago with sciatica, left side (principal); R11.2 Nausea with vomiting, unspecified; I10 Essential (primary) hypertension; E11.9 Type 2 diabetes mellitus without complications; E03.9 Hypothyroidism, unspecified; F17.210 Nicotine dependence, cigarettes, uncomplicated; Z98.890 Other specified postprocedural states; Z79.899 Other long term (current) drug therapy; Z88.1 Allergy status to other antibiotic agents | CPT/HCPCS: 99283 ==

== ENCOUNTER 2017-06-01 17:16 | Emergency (ER) | payer MEDICAID ==
[~2017-06-01] VITALS: Ht 165.1 cm; Wt 86.2 kg
--- NOTE | ~2017-06-01 | EKG ---
PATIENT: NAEEM WINKLER UNIT #: [id number] Ventricular Rate: 75 BPM Atrial Rate: 75 BPM P-R Interval: 154 ms QRS Duration: 84 ms Q-T Interval: 400 ms QTC Calculation(Bezet): 446 ms P [place]: 38 degrees Calculated R [place]: 51 degrees Calculated T [place]: 46 degrees Diagnosis Line: Normal sinus rhythm Diagnosis Line: Minimal voltage criteria for LVH, may be normal Diagnosis Line: variant Diagnosis Line: Borderline ECG Diagnosis Line: When compared with ECG of 29-JUL-2016 15:51, Diagnosis Line: Vent. rate has decreased BY 52 BPM Diagnosis Line: Non-specific change in ST segment in Lateral leads Diagnosis Line: Nonspecific T wave abnormality has replaced Diagnosis Line: inverted T waves in Inferior leads Diagnosis Line: Confirmed by CELENA BARNETT MD ([id number]) on Diagnosis Line: 06/04/2017 10:47:56 AM INTERPRETING MD: ANIBAL KOENIG
--- NOTE | ~2017-06-01 | CT2 ---
[facility] A Service of [facility] RADIOLOGY TEXT RESULTS PATIENT: NAEEM WINKLER LOCATION: [facility] : 75 UNIT #: [id number] AGE: [address]: Poncho Burrows DO SEX: F ORDER DR: [id number] [facility] [address] [place], [place] [address] [id number] E MR#: [id number] Acc #: [id number] NAME: NAEEM WINKLER : 1975 SEX: F STUDY DATE/TIME: 06/01/2017 21:04 UNIT: [facility] ROOM: STUDY DESCRIPTION: CT Abd and Pelv W Cont Attending Physician: Poncho Burrows D.O. Ordering Physician: Poncho Burrows D.O. Primary Care Physician: [facility] IMAGING REPORT This report is preliminary unless electronic signature is present EXAM CT abdomen and pelvis with contrast 06/01/2017 HISTORY 42-year-old female with epigastric abdominal pain for 3 days. Nausea, vomiting. COMPARISON CT abdomen and pelvis 03/03/2017. TECHNIQUE Helical scan performed through the abdomen and pelvis following administration of IV contrast. Coronal and sagittal reformatted images. This CT examination was performed with one or more of the following radiation dose reduction techniques: automatic exposure control, adjustment of mA and/or kV according to patient size, and iterative reconstruction. FINDINGS Visualized lung bases are unremarkable. Previously noted nodular opacity in the right lower lobe is no longer seen on today's exam. The liver, spleen, pancreas, gallbladder, both adrenal glands, and both kidneys are within expected limits. Punctate nonobstructing bilateral intrarenal stones are unchanged. There are small hypoattenuating lesions in both kidneys which are too small to accurately characterize, but likely represent renal cysts. No hydronephrosis or obstructing ureteral stones. Abdominal aorta normal in course and caliber without dissection. Small bowel is unremarkable without obstruction. Appendix is normal. Colon unremarkable. No free fluid or free air. Urinary bladder, uterus, and adnexa are unremarkable. No free pelvic [facility] A Service of [facility] RADIOLOGY TEXT RESULTS PATIENT: NAEEM WINKLER LOCATION: [facility] : 75 UNIT #: [id number] AGE: [address]: Poncho Burrows DO SEX: F ORDER DR: jewel. Suspected 2-cm functional left ovarian cyst. No acute bony abnormality. IMPRESSION 1. No acute abdominal or pelvic findings. 2. Punctate bilateral nonobstructing intrarenal calculi. 3. Normal appendix. 4. 2 cm left adnexa cystic structure, likely a functional ovarian cyst. 5. Interval resolution of previously noted nodular density in the right lung base. Dictated by... Michael Kelly M.D. THIS IS AN ELECTRONICALLY VERIFIED REPORT Michael Kelly M.D. at 06/02/2017 3:18 PM DI/jessie TD: 06/02/2017 09:50 JOB #: [id number] MEDICAL IMAGING REPORT Page 1 of 1 COPY
[2017-06-01 17:40] LABS: BASOPHIL# 0.2 X10e3 (0-0.3); BASOPHIL% 1.2 % (0-2.5); EOSINOPHIL# 0.2 X10e3 (0-0.7); EOSINOPHIL% 1.3 % (0.0-7.0); HEMATOCRIT 43.5 % (35.0-45.0); HEMOGLOBIN 14.8 gm/dL (12.0-16.0); LYMPHOCYTE# 2.7 X10e3 (1.0-3.5); LYMPHOCYTE% 19.9 % (17.0-45.0); MEAN CELL VOLUME 86.5 FL (83-96); MEAN CORPUSCULAR HEMOGLOBIN 29.5 PG (28-34); MEAN PLATELET VOLUME 7.7 FL (6.5-11.5); MONOCYTE# 0.8 X10e3 (0-1.0); MONOCYTE% 5.7 % (3.0-12.0); NEUTROPHIL# 9.9 X10e3 (1.5-7.1); NEUTROPHIL% 71.9 % (40-75); PLATELET COUNT 288 X10e3 (140-420); RED BLOOD COUNT 5.02 X10e (3.90-5.30); RED CELL DISTRIBUTION WIDTH 15.1 % (11.0-15.5); WHITE BLOOD COUNT 13.8 X10e3 (4.0-10.5)
[2017-06-01 17:41] LABS: DIFF IND NO
[2017-06-01 18:15] LABS: ALBUMIN SERUM 3.9 g/dL (3.5-5.0); BILIRUBIN, DIRECT 0.1 mg/dL (0.0-0.2); BILIRUBIN,INDIRECT 0.2 mg/dL (0.0-0.9); BILIRUBIN,TOTAL 0.3 mg/dL (0.2-2.0); CALCIUM SERUM 9.7 mg/dL (8.4-10.2); GLOM FILT RATE Estimated 69.5 mL/min (>60); PROTEIN TOTAL SERUM 7.6 g/dL (6.0-8.3)
[2017-06-01 20:17] LABS: URINE SOURCE CLEAN CATCH
[2017-06-01 20:29] LABS: URINE APPEARANCE CLOUDY; URINE BILIRUBIN NEG (NEG); URINE BLOOD NEG (NEG); URINE COLOR YELLOW; URINE GLUCOSE NEG (NEG); URINE KETONE NEG (NEG); URINE LEUKOCYTE ESTERASE NEG (NEG); URINE NITRATE NEG (NEG); URINE PROTEIN TRACE (NEG); URINE SPECIFIC GRAVITY 1.018 (1.003-1.035); URINE UROBILINOGEN 0.2 MG/DL (NEG)
[2017-06-01 20:37] LABS: CULTURE INDICATED? NO
[2017-06-01 22:29] LABS: POC - CKMB <1.0 ng/mL (0.0-7.9); POC - TROPONIN <0.05 ng/mL (<=0.05)
== END 2017-06-02 01:08 | disposition home or self-care (01) ==
LOC: CED 17:16
PROVIDERS: Emergency Medicine
DX: R10.9 Unspecified abdominal pain (principal); R11.2 Nausea with vomiting, unspecified; E11.9 Type 2 diabetes mellitus without complications; Z98.890 Other specified postprocedural states; F17.200 Nicotine dependence, unspecified, uncomplicated; Z88.1 Allergy status to other antibiotic agents; Z79.899 Other long term (current) drug therapy
CPT/HCPCS: 36415; 74177; 80048; 80076; 81003; 82150; 82553; 83690; 84484; 84703; 85025; 93005; 96374; 96375; 99284; C9113; J1170; J2405; J2550; Q9967